=== PATIENT | female | born 1935 | race Caucasian/White ===

== ENCOUNTER 2020-07-12 19:17 | Emergency (ER) | payer OTHER, SELFPAY ==
[2020-07-12 19:24] VITALS: BP 189/91; PULSE 78; RESP 18; TEMP 37; BMI 25.8
--- NOTE | 2020-07-12 20:37 | ED.FALL ---
HPI - Fall General Chief Complaint: Fall Stated Complaint: fall yesterday, facial injury Time Seen by Provider: 07/12/20 20:17 Source: patient Mode of arrival: Ambulatory Limitations: no limitations History of Present Illness HPI Narrative: 84-year-old female not on anticoagulation here for injuries that she sustained when she states she tripped over her foot last evening. She states she fell forward. Landing on her knees and then continuing forward hitting her face on the ground. There was no loss of consciousness. He has been ambulatory since the event. Has some abrasions on her knees but no other orthopedic injuries. No neck injuries. She does have bruising over face. She states she came in to get ?checked out? to make sure that she did not have any ?bleeding? Related Data Allergies Allergy/AdvReac Type Severity Reaction Status Date / Time No Known Drug Allergies Allergy Verified 07/12/20 19:24 Review of Systems Constitutional Constitutional: Denies fatigue, Denies fever(s) and Reports headache(s) Eyes Eyes: Denies change in vision ENT Ears, Nose, Mouth, and Throat: Reports headache(s) and Reports nasal trauma Cardiovascular Cardiovascular: Denies chest pain, Denies rapid heart rate and Denies dyspnea Respiratory Respiratory: Denies dyspnea Gastrointestinal Gastrointestinal: Denies abdominal pain Musculoskeletal Musculoskeletal: Denies arthralgias and Denies myalgias Integumentary/Breasts Comments: Abrasions over knees, abrasions or nose Neurologic Neurologic: Denies behavioral changes, Denies confusion and Reports headache(s) Psychiatric Psychiatric: Denies behavioral changes, Denies confusion and Denies depression Endocrine Endocrine: Denies fatigue Hematologic/Lymphatic Hematologic/Lymphatic: Denies easy bleeding and Denies easy bruising Allergic/Immunologic Allergic/Immunologic: Denies urticaria Patient History Medical History Hearing difficulty of both ears (Acute) Social History Smoking Status: Never smoker Smoking Status: Never smoker alcohol intake frequency: holidays/special occasions only Substance Use Type: does not use Exam Initial Vital Signs Initial Vital Signs: Vital Signs Temperature 98.6 F 07/12/20 19:24 Pulse Rate 78 07/12/20 19:24 Respiratory Rate 18 07/12/20 19:24 Blood Pressure 189/91 H 07/12/20 19:24 Const General: cooperative and comfortable Limitations: mental status not altered HENMT Head: abrasion (Over bridge of nose) and contusion (Mental forehead) Ears: TM's normal bilaterally Nose: nares normal, septum normal and No nasal discharge Resp Effort & Inspection: normal respiratory effort Auscultation: clear to auscultation bilaterally Cardio Rate: regular rate Rhythm: regular rhythm GI Inspection: non-distended Palpation: soft Skin Other: Contusion over forehead and abrasion over her nose. Neuro General: patient alert, patient awake and patient oriented x3 Cognition: normal cognition Extrem General: normal to inspection and capillary refill normal Psych Appearance: grossly normal and well kempt Scores GCS [place] coma scale eye opening: Spontaneous Joshua coma scale verbal response: Orientated Joshua coma scale motor response: Obey commands [place] coma scale total score: 15 Nexus Score for C-Spine Focal Neurologic deficit present: No Midline spinal tenderness present: No Altered level of conciousness present: No Intoxication present: No Distracting Injury Present: No Nexus Criteria for C-spine: 0 Course Orders Ordered: ED Orders 07/12/20 20:38 CT facial bones wo con Stat CT head/brain wo con Stat Vital Signs Vital signs: Vital Signs - 8 hr 07/12/20 19:24 07/12/20 22:00 Temperature 98.6 F Pulse Rate 78 62 Respiratory Rate 18 Blood Pressure 189/91 H 153/62 H Pulse Oximetry 97 MDM - Fall Imaging Data CT scan - head: Radiologist's Impression: [place] [address] CT Scan Report Signed Patient: Sandra Dover [facility]#: [id number] : 5Acct:[id number] Age/Sex: 84 / FDate of Service: 07/12/20 Loc: ED Accession Number: [id number] Procedure: CT head/brain wo con Ordering Provider: Avelino Puentes D.O. PROCEDURE: CT HEAD/BRAIN WO CON INDICATIONS: fall hit head TECHNIQUE: Noncontrast 4.5 mm thick angled axial sections acquired from the foramen magnum to the vertex, with coronal and sagittal reformats. For radiation dose reduction, the following was used: automated exposure control, adjustment of mA and/or kV according to patient size. COMPARISON: None. FINDINGS: Image quality: Excellent. CSF spaces: Basal cisterns are patent. No extra-axial fluid collections. The ventricles are symmetric in size and shape. Brain: No intracranial bleeds or masses. There is cerebral volume loss for age, with resultant ventricular and sulcal prominence. There are periventricular and deep white matter chronic small vessel ischemic changes. There is intracranial internal carotid artery atherosclerosis. Skull and face: Mild right frontal soft tissue contusion. No underlying fracture. There is hyperostosis frontalis interna. Sinuses: Visualized sinuses and mastoids are clear. IMPRESSION: 1. No CT evidence of acute intracranial trauma. 2. Minor frontal soft tissue injury without underlying fracture. Dictated by: Christine Finley M.D. on 07/12/2020 at 21:24 Approved by: Christine Finley M.D. on 07/12/2020 at 21:[address]: Radiologist's Impression: [place] [address] CT Scan Report Signed Patient: Sandra Dover [facility]#: [id number] : 5Acct:[id number] Age/Sex: 84 / FDate of Service: 07/12/20 Loc: ED Accession Number: [id number] Procedure: CT facial bones wo con Ordering Provider: Avelino Puentes D.O. PROCEDURE: CT FACIAL BONES WO CON INDICATIONS: fall hit head TECHNIQUE: Noncontrast 2.5 mm thick axial images acquired from the mandible through the frontal sinuses, with coronal and sagittal reformatting. For radiation dose reduction, the following was used: automated exposure control, adjustment of mA and/or kV according to patient size. COMPARISON: None. FINDINGS: Image quality: Excellent. Bones and teeth: Questionable minimally displaced right nasal bone fracture. There is minimal acute rightward angulation of the tip of the bony nasal septum. There is otherwise chronic bowing of the nasal septum without hematoma formation. Orbital love are intact. Sinus love show no fracture or deformity. Visualized portions of the mandible demonstrate no fractures or subluxation. Zygomatic arches are intact. Pterygoid plates are intact. Visualized portions of the skull base and auditory canals are intact. Sinuses: Paranasal sinuses are aerated, without fluid levels, mucosal thickening, or mucoceles. There is a tiny polyp or mucous retention cyst along the medial aspect of the left middle turbinate extending into the sinus. Mastoid air cells are aerated. Soft tissues: Minor frontal soft tissue thickening. No underlying fractures. No edema, masses, or fluid collections. No enlarged lymph nodes. No soft tissue lacerations or debris. Vascular: Visualized vascular structures appear normal in the absence of contrast. Bony vascular foramina and canals are intact. IMPRESSION: 1. Chronicity indeterminate minimal displaced right nasal bone and anterior nasal septal fracture. 2. Minor frontal soft tissue trauma. Dictated by: Christine Finley M.D. on 07/12/2020 at 21:28 Approved by: Christine Finley M.D. on 07/12/2020 at 21:37 MDM Narrative Medical decision making narrative: Not on anticoagulation, alert and oriented x3, abrasions over her forehead and nose knee no intervention here in the ER. She can breathe out of both sides of her nares and has no deformity of the nose. CT scans as described above. No other injuries reported from the patient or found on exam. Feel we can hold on further workup for now. Patient was given return precautions and follow-up instructions. She expressed understanding and agreement. Discharge Plan Departure Patient Disposition: Home Clinical Impression: Fall Qualifiers: Encounter type: initial encounter Qualified Code(s): W19.XXXA - Unspecified fall, initial encounter Contusion of face Qualifiers: Encounter type: initial encounter Qualified Code(s): S00.83XA - Contusion of other part of head, initial encounter Fracture closed, nasal bone Qualifiers: Encounter type: initial encounter Qualified Code(s): S02.2XXA - Fracture of nasal bones, initial encounter for closed fracture Discharge Date/Time: 07/12/20 22:00 Instructions: DI for Nose Fracture, How to Prevent Falls Activity Restrictions/Additional Instructions: You have no restrictions on your activities. You can place ice over the bruising on your face. You can take Tylenol/ibuprofen for any headaches. Contact your primary provider for a follow-up. Return to the emergency department for any new or worsening symptoms
[2020-07-12 22:00] VITALS: BP 153/62; PULSE 62; O2SAT 97
== END 2020-07-12 22:00 | disposition home or self-care (01) ==
PROVIDERS: Emergency Provider Emergency Medicine
DX: S00.83XA Contusion of other part of head, initial encounter (principal); S02.2XXA Fracture of nasal bones, initial encounter for closed fracture; R51 Headache; S80.212A Abrasion, left knee, initial encounter; S80.211A Abrasion, right knee, initial encounter; S00.31XA Abrasion of nose, initial encounter; W19.XXXA Unspecified fall, initial encounter
CPT/HCPCS: 70450; 70486; 99283; 99284

== ENCOUNTER 2020-09-01 13:00 | Emergency (ER) | payer OTHER, SELFPAY ==
[2020-09-01 13:20] VITALS: BP 140/70; PULSE 60; RESP 14; TEMP 36.5; O2SAT 99; BMI 23.3
--- NOTE | 2020-09-01 16:13 | ED_ITS ---
HPI - Female Genitourinary General Chief complaint: Urogenital-Female Stated complaint: bladder infection Time Seen by Provider: 09/01/20 15:44 Source: patient Mode of arrival: Ambulatory Limitations: no limitations History of Present Illness HPI Narrative: This is an 84-year-old female who comes to the emergency department with complaint of some frequency and odor when she urinates. Patient states she noticed it yesterday. Patient denies fevers or other symptoms she has had some lower abdominal discomfort and flank discomfort. Patient states that she was sexually active on . She denies any other issues, she denies any digital discharge or bleeding. She states she did have a yeast infection many years ago. She defers any further pelvic evaluation at this time. Related Data Previous Rx's Medication Instructions Recorded fluconazole [Diflucan] 150 mg PO DAILY #2 tab 09/01/20 Allergies Allergy/AdvReac Type Severity Reaction Status Date / Time No Known Drug Allergies Allergy Verified 09/01/20 13:20 Review of Systems Review of Systems ROS Unobtainable: All systems reviewed & are unremarkable except as noted in HPI and below Patient History Medical History Hearing difficulty of both ears (Acute) alcohol intake frequency: holidays/special occasions only Substance Use Type: does not use Exam Narrative Exam Narrative: GENERAL: Alert and oriented x three, well-nourished, well- appearing elderly female in mild distress HEENT: Head normocephalic, atraumatic, EOMI, pupils reactive, face symmetric, moist mucous membranes NECK: Supple, full range of motion CARDIOVASCULAR: Regular rate and rhythm without murmurs, rubs or gallops. RESPIRATORY: Breath sounds equal bilaterally, no wheezes rales or rhonchi. ABDOMEN: Soft, nontender. Normoactive bowel sounds all 4 quadrants. No guarding or rebound, rigidity, no mass : No CVA tenderness. Patient politely refuses pelvic exam. EXTREMITIES: Normal range of motion, no clubbing or edema. Neurovascularly i ntact NEUROLOGICAL: Cranial nerves II through XII grossly intact. Moving all extremities SKIN: Warm, dry, no petechiae, no rashes or lesions. Initial Vital Signs Initial Vital Signs: Vital Signs Temperature 97.7 F 09/01/20 13:20 Pulse Rate 60 09/01/20 13:20 Respiratory Rate 14 09/01/20 13:20 Blood Pressure 140/70 09/01/20 13:20 Pulse Oximetry 99 09/01/20 13:20 Course Orders Ordered: ED Orders 09/01/20 16:26 Urine Culture Stat Vital Signs Vital signs: Vital Signs - 8 hr 09/01/20 13:20 Temperature 97.7 F Pulse Rate 60 Respiratory Rate 14 Blood Pressure 140/70 Pulse Oximetry 99 MDM - Female Genitourinary Lab Data Attestation: I reviewed the patient's lab results. Labs: Urine Dip Bedside Urine Glucose Negative Bedside Urine Bilirubin - Negative Bedside Urine Ketone - Negative Urine Specific [place] 1.015 Bedside Urine Occult Blood - Negative Bedside Urine pH 6.0 Bedside Urine Protein - Negative Bedside Urine Urobilinogen - Negative Bedside Urine Nitrite - Negative Bedside Urine Leukocytes - Negative Esterase MDM Narrative Medical decision making narrative: Discussed with patient we will send her urine for culture although she may potentially have a yeast infection or other STI. Patient is very hard of hearing so somewhat difficult to obtain all of her sexual history but she does not wish to have a pelvic exam at this time. Will plan to do a single round of medication for possible yeast infection but I did discuss with the patient if her symptoms have not resolved shortly she does need a pelvic exam and further evaluation which patient expresses understanding for verbally. Discharge Plan Departure Patient Disposition: Home Clinical Impression: Increased urinary frequency Instructions: Facts About Sexually Transmitted Infections Activity Restrictions/Additional Instructions: Take fluconazole 1 tablet today, wait one day then follow with tablet the following day. If you continue to have symptoms you need a pelvic exam for further evaluation of other possible infections. Return to the ER for fevers, increasing abdominal or back pain persistent vomiting, increasing difficulty with urination, urinary tension, difficulty with bowel movements, redness or skin changes or other new or concerning symptoms. Prescriptions: New fluconazole [Diflucan] 150 mg tablet 150 mg PO DAILY Qty: 2 RF: 0
[2020-09-01 16:31] VITALS: BP 135/72; PULSE 65; RESP 18; O2SAT 99
== END 2020-09-01 16:31 | disposition home or self-care (01) ==
PROVIDERS: Emergency Provider Emergency Medicine
DX: R35.0 Frequency of micturition (principal)
CPT/HCPCS: 81003; 99281; 99282

== ENCOUNTER 2021-06-28 13:39 | Emergency (ER) | payer OTHER, SELFPAY ==
[2021-06-28 14:11] VITALS: BP 180/79; PULSE 82; RESP 14; TEMP 36.6; O2SAT 99; BMI 21.4
--- NOTE | 2021-06-28 17:46 | ED.FEMALEGU ---
HPI - Female Genitourinary General Chief complaint: Urogenital-Female Stated complaint: BLADDER DIAPHRAGM OUT OF PLACE Time Seen by Provider: 06/28/21 17:46 Source: patient Mode of arrival: Ambulatory Limitations: no limitations History of Present Illness HPI Narrative: This is an 85 year old female who comes with complaint of her pessary being out of place. She states this often will cause her discomfort in her left lower abdomen and when adjusted even slightly resolved her symptoms. She also notes that in the vaginal area there is an area that is extremely sensitive and she feels like ?she has a hard on an ?all of the time and that she is going to orgasm constantly. She finds this very distressing and uncomfortable. Patient denies any new discharge or skin changes. 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 She states that often she will have at pelvic exam and her pessary will be adjusted very slightly and this resolved her abdominal pain but that her vaginal irritation is new and has been present for several weeks. She does not appreciate any other symptoms. She has 1 new medication which she started about the same time. She is unsure if this may be causative. She denies any other new changes. She has had yeast infections in the past but has not appreciated new discharge or changes. Related Data Previous Rx's Medication Instructions Recorded fluconazole 150 mg tablet 150 mg PO DAILY #2 tab 09/01/20 (Diflucan) Allergies Allergy/AdvReac Type Severity Reaction Status Date / Time No Known Drug Allergies Allergy Verified 06/28/21 14:11 Review of Systems Review of Systems ROS Unobtainable: All systems reviewed & are unremarkable except as noted in HPI and below Patient History Medical History Hearing difficulty of both ears alcohol intake frequency: holidays/special occasions only Substance Use Type: does not use Exam Narrative Exam Narrative: GENERAL: Alert and oriented x three, and bili female in mild distress. HEENT: Head normocephalic, atraumatic, EOMI, pupils reactive, face symmetric, moist mucous membranes NECK: Supple, full range of motion CARDIOVASCULAR: Regular rate and rhythm without murmurs, rubs or gallops. RESPIRATORY: Breath sounds equal bilaterally, no wheezes rales or rhonchi. ABDOMEN: Soft, nontender. Normoactive bowel sounds all 4 quadrants. No guarding or rebound, rigidity, no mass : No CVA tenderness. Female: external vaginal exam is normal, no vaginal bleeding, small amount thin white discharge, no cervical motion tenderness, history is in place normal speculum exam otherwise, no adnexal tenderness/mass. Bimanual exam is normal, no enlarged or tender uterus. Non-gravid. Patient notes on the inner labia minora on the left were you would typically find a Bartholin gland or cyst is her area that is quite sensitive. There is no skin changes, there is no obvious dryness and comparison to the other skin. There is no lumps, there is no swelling, there is no warmth, and did not elicit any worsening symptoms with palpation. EXTREMITIES: Normal range of motion, no clubbing or edema. Neurovascularly intact NEUROLOGICAL: Cranial nerves II through XII grossly intact. Moving all extremities. Normal gait. SKIN: Warm, dry, no petechiae, no rashes or lesions. Initial Vital Signs Initial Vital Signs: Vital Signs Temperature 97.9 F 06/28/21 14:11 Pulse Rate 82 06/28/21 14:11 Respiratory Rate 14 06/28/21 14:11 Blood Pressure 180/79 H 06/28/21 14:11 Pulse Oximetry 99 06/28/21 14:11 Course Orders Ordered: ED Orders 06/28/21 18:50 Chlamydia/Gonoc/Myco Genital Stat Genital Culture Stat HSV Culture Typing Stat Wet Prep Tric BV Katelyn Stat Vital Signs Vital signs: Vital Signs - 8 hr 06/28/21 14:11 06/28/21 18:00 06/28/21 18:01 Temperature 97.9 F Pulse Rate 82 86 66 Respiratory Rate 14 Blood Pressure 180/79 H 154/70 H Pulse Oximetry 99 99 100 06/28/21 18:30 Temperature Pulse Rate 88 Respiratory Rate Blood Pressure 172/72 H Pulse Oximetry 96 MDM - Female Genitourinary MDM Narrative Medical decision making narrative: This a pleasant 85-year-old female who comes emergency department with complaint of left lower abdominal discomfort which she states is secondary to her pessary being out of place. She states typically she will have a minor adjustment in her symptoms will resolve. We did do a pelvic, after moving her pessary less than a cm to the side her symptoms have improved. She also notes that on the left inner labia majora typically reviewed find breath lung gland or cyst the area is very sensitive and feels like she is sexually aroused she has not noticed any lumps bumps or under changes. On exam the tissue appears typical, there is no swelling or signs of infection, irritation or other changes that clearly caused her symptoms. She has some mild discharge but this may be physiologic and would await cultures. Patient aware turn around is several days. Discharge Plan Departure Patient Disposition: Home Clinical Impression: Encounter for fitting and adjustment of pessary, Vaginal irritation Activity Restrictions/Additional Instructions: Follow up with your gynecology team at your scheduled appointment. You do have a little discharge. You do have cultures pending and if these are positive you will be contacted. The area that is irritated does not correlate with typical symptoms that you are having. Please discuss this with your gynecology team. They may have some actions or thoughts in terms of treatment that may be helpful for you. I do not see any signs of infection, swelling or lumps today. Please continue your home medications as prescribed. Please return for fevers, lightheadedness or passing out, new abdominal pain, vaginal bleeding, or other new or concerning symptoms Prescriptions: No Action fluconazole [Diflucan] 150 mg tablet 150 mg PO DAILY Qty: 2 RF: 0
[2021-06-28 18:00] VITALS: PULSE 86; O2SAT 99
[2021-06-28 18:01] VITALS: BP 154/70; PULSE 66; O2SAT 100
[2021-06-28 18:30] VITALS: BP 172/72; PULSE 88; O2SAT 96
[2021-07-03 12:13] LABS: Chlamydia trachomatis Negative (Negative); Mycoplasma genitalium Negative (Negative); Neisseria gonorrhoeae Negative (Negative)
== END 2021-06-28 19:28 | disposition home or self-care (01) ==
PROVIDERS: Emergency Provider Emergency Medicine
DX: Z46.89 Encounter for fitting and adjustment of other specified devices (principal); N89.8 Other specified noninflammatory disorders of vagina; R10.32 Left lower quadrant pain
CPT/HCPCS: 87070; 87077; 87147; 87186; 87205; 87210; 87255; 87491; 87563; 87591; 99283